=== PATIENT | male | born 1990 | race Caucasian/White ===

== ENCOUNTER 2025-04-04 14:30 | Emergency (ER) | payer OTHER, SELFPAY ==
[2025-04-04 14:31] VITALS: PULSE 86; RESP 18; TEMP 36.6; O2SAT 99; BMI 34.9
[2025-04-04 14:35] VITALS: BP 174/134
--- NOTE | 2025-04-04 15:04 | EX.ED.DYSGE1 ---
HPI History of Present Illness Chief Complaint: Lower Extremity Injury Detail of Chief Complaint: [place] left calf Informant: patient Onset/Context/Timing Onset: Today and Hours Context: Sudden Onset Timing: Continuous Quality: Foreign body right calf, fishhook Location: Mid medial left calf Current Severity: Mild Maximum Severity: Mild Worsened by: Movement Relieved by: Nothing Associated Symptoms Associated Symptoms: None Narrative Narrative: Patient is a 34-year-old male with no past medical history and no allergies who presents because of fishhook in his calf. Apparently dog stepped on the fishhook and then jumped and the 1 prong became embedded in his calf. The fishhook was cut to separate the patient from the dog. He has no other complaints. Prior similar symptoms: No Recent Illness/Hospitalization: No PFSH PFSH Medical History no medical history no medical history Allergy/AdvReac Type Severity Reaction Status Date / Time No Known Allergies Allergy Verified 04/04/25 14:31 Surgical History no surgical history no surgical history Social History (Updated 04/04/25 @ 15:[address] Randy Saez MD) household members: spouse and children Smoking Status: Never smoker ROS ROS ED Musculoskeletal Musculoskeletal: Denies arthralgias or myalgias Integumentary Reports other Details: Puncture wound due to fishhook Neurologic Neurologic: Denies paresthesias or weakness Hematologic/Lymphatic Hematologic/Lymphatic: Reports systems reviewed and no addt'l complaints, except as documented EXAM Physical Exam Const Vital Signs: 04/04/25 14:31 04/04/25 14:35 Temperature 97.8 F Temperature Source Oral Pulse Rate 86 Respiratory Rate 18 Blood Pressure 174/134 H Blood Pressure Mean 147 Pulse Ox 99 Oxygen Delivery Method Room Air Positive well nourished and well developed Constitutional Narrative: BMI is 34.9. Blood pressure is elevated. He has no history of hypertension. This may be due to the fact that he is upset. Apparently Torrey was taken to the bed by his . General Appearance ED: well developed HEENT HEENT Narrative: HEENT is grossly unremarkable. Eyes PERRL and EOMs intact bilaterally Resp normal respiratory effort Cardio regular rate and regular rhythm Extremity Negative for normal to inspection Extremity Narrative: Patient has a entrance and exit wound from the fishhook. It is marked. There is no evidence of infection. He has some tenderness of the Where the fishhook is embedded. Neuro oriented x3 and CN's II-XII intact bilaterally Sensorium / Orientation: alert Psych mental status grossly normal Skin Skin Narrative: Foreign body left calf MDM MDM MDM Narrative Medical decision making narrative: Since the fishhook is already been cut the barbed end was pulled and the hook was easily removed. Wound care per nursing staff. There is no indication for imaging or antibiotics. Patient was told his blood pressure is elevated and have this checked. Discharge Plan Triage Chief Complaint: Lower Extremity Injury ED Provider: Randy Saez Dx/Rx/DC Orders Clinical Impression: Foreign body of left lower leg, Elevated blood-pressure reading without diagnosis of hypertension, BMI 34.0-34.9,adult Instructions: ED Foreign Body, Soft Tissue (Removed), ED Hypertension, To Be Confirmed Primary Care Provider: Care Physician,No Primary Referrals: Care Physician,No Primary [Primary Care Provider] - Doctor,Your [Non-Staff] - 1-2 Weeks Activity Restrictions/Additional Instructions: You need to have your blood pressure reassessed in 1 to 2 weeks. Print Language: Kazakh Disposition Disposition: Home, Self Care
[2025-04-04 15:13] VITALS: BP 165/117; PULSE 86; RESP 16; TEMP 36.6; O2SAT 99
== END 2025-04-04 15:14 | disposition home or self-care (01) ==
PROVIDERS: Emergency Provider Emergency Medicine; Visit Provider Emergency Medicine
DX: S80.852A Superficial foreign body, left lower leg, initial encounter (principal); W45.8XXA Other foreign body or object entering through skin, initial encounter; R03.0 Elevated blood-pressure reading, without diagnosis of hypertension
CPT/HCPCS: 99284